=== PATIENT | male | born 1980 | race Caucasian/White ===

== ENCOUNTER 2019-12-14 15:48 | Inpatient (IN) | payer MEDICAID ==
[~2019-12-14] VITALS: Ht 175.3 cm; Wt 69.9 kg
[2019-12-14 16:09] VITALS: Ht 175.3 cm; Wt 69.9 kg
[2019-12-14 17:02] LABS: BASOPHIL % 0.5 % (0-2); PLATELET COUNT 248 x10^3mcL (130-400); RED CELL DISTRIBUTION WIDTH 13.5 % (11.5-14.5)
[2019-12-14 17:18] LABS: CALCIUM 9.3 mg/dL (8.5-10.1); CARBON DIOXIDE 28.9 mmol/L (21-32); CHLORIDE SERUM 103 mmol/L (98-107); CREATININE SERUM 0.7 mg/dL (0.7-1.3); GFR1 > 60 mL/min; GLUCOSE SERUM 103 mg/dL (74-106); POTASSIUM SERUM 3.6 mmol/L (3.5-5.1); SODIUM SERUM 141 mmol/L (136-145)
[2019-12-14 17:24] LABS: ALBUMIN 3.9 g/dL (3.4-5.0); ALKALINE PHOSPHATASE 204 U/L (46-116); ALT/SGPT 710 U/L (16-63); AST/SGOT 331 U/L (15-37); BILIRUBIN TOTAL 6.9 mg/dL (0.20-1.00); LIPASE 109 IU/L (73-393)
[2019-12-14 17:26] LABS: TOTAL PROTEIN, SERUM 7.3 g/dL (6.4-8.2)
[2019-12-14 18:52] LABS: microscopic required? NO
[2019-12-14 19:03] LABS: UA SPECIFIC GRAVITY 1.025 (1.005-1.035); urine erythrocyte NEGATIVE (NEGATIVE)
[2019-12-14 19:24] LABS: CHOLESTEROL/HDL RATIO 2.7; MAGNESIUM 2.4 mg/dL (1.8-2.4); PHOSPHOROUS 3.3 mg/dL (2.5-4.9)
[2019-12-14 19:35] LABS: AMPHETAMINE QUAL UR NONE DETECTED (See below)
[2019-12-14 20:21] LABS: T3 TOTAL 0.59 ng/mL
[2019-12-14 20:29] LABS: FREE T4 0.87 ng/dL (0.76-1.46)
[2019-12-14 20:30] LABS: FREE THYROXINE INDEX 1.5 ug/dL (1.4-4.5); T4(THYROXINE) 4.5 ug/dL (4.7-13.3)
[2019-12-14 20:48] VITALS: BP 120/79
[2019-12-15 05:46] VITALS: BP 100/56
[2019-12-15 06:44] LABS: MAGNESIUM 2.3 mg/dL (1.8-2.4); PHOSPHOROUS 3.2 mg/dL (2.5-4.9)
[2019-12-15 06:50] LABS: BASOPHIL % 0.8 % (0-2); PLATELET COUNT 205 x10^3mcL (130-400); RED CELL DISTRIBUTION WIDTH 13.6 % (11.5-14.5)
[2019-12-15 06:51] LABS: ALKALINE PHOSPHATASE 184 U/L (46-116); ALT/SGPT 581 U/L (16-63); AST/SGOT 236 U/L (15-37); BILIRUBIN TOTAL 6.25 mg/dL (0.20-1.00); CALCIUM 8.9 mg/dL (8.5-10.1); CARBON DIOXIDE 27.8 mmol/L (21-32); CHLORIDE SERUM 106 mmol/L (98-107); CREATININE SERUM 0.7 mg/dL (0.7-1.3); GFR1 > 60 mL/min; GLUCOSE SERUM 80 mg/dL (74-106); POTASSIUM SERUM 3.8 mmol/L (3.5-5.1); SODIUM SERUM 141 mmol/L (136-145)
[2019-12-15 07:05] LABS: ALBUMIN 3.2 g/dL (3.4-5.0); TOTAL PROTEIN, SERUM 6.1 g/dL (6.4-8.2)
[2019-12-15 08:15] VITALS: BP 103/59
[2019-12-15 13:00] VITALS: BP 99/61
[2019-12-15 16:19] VITALS: BP 93/57
[2019-12-15 20:33] VITALS: BP 99/55
[2019-12-15 21:08] VITALS: BP 105/71
[2019-12-16 05:40] VITALS: BP 100/52
[2019-12-16 06:30] LABS: BASOPHIL % 0.4 % (0-2); PLATELET COUNT 244 x10^3mcL (130-400); RED CELL DISTRIBUTION WIDTH 13.5 % (11.5-14.5)
[2019-12-16 06:59] LABS: ALKALINE PHOSPHATASE 201 U/L (46-116); ALT/SGPT 488 U/L (16-63); AST/SGOT 152 U/L (15-37); BILIRUBIN TOTAL 2.59 mg/dL (0.20-1.00); CHLORIDE SERUM 101 mmol/L (98-107); CREATININE SERUM 0.7 mg/dL (0.7-1.3); GFR1 > 60 mL/min; GLUCOSE SERUM 61 mg/dL (74-106); MAGNESIUM 1.9 mg/dL (1.8-2.4); PHOSPHOROUS 3.5 mg/dL (2.5-4.9); SODIUM SERUM 138 mmol/L (136-145); TOTAL PROTEIN, SERUM 6.4 g/dL (6.4-8.2)
[2019-12-16 07:17] LABS: ALBUMIN 3.2 g/dL (3.4-5.0)
[2019-12-16 09:03] VITALS: BP 112/54
[2019-12-16 13:13] VITALS: BP 109/63
[2019-12-16 13:48] VITALS: BP 107/56
[2019-12-16 17:03] VITALS: BP 129/69
[2019-12-16 20:00] VITALS: BP 105/53
[2019-12-17 05:01] VITALS: BP 100/56
[2019-12-17 06:28] LABS: BASOPHIL % 0.2 % (0-2); PLATELET COUNT 225 x10^3mcL (130-400); RED CELL DISTRIBUTION WIDTH 13.5 % (11.5-14.5)
[2019-12-17 07:51] LABS: CALCIUM 8.9 mg/dL (8.5-10.1); CARBON DIOXIDE 30.2 mmol/L (21-32); CHLORIDE SERUM 104 mmol/L (98-107); CREATININE SERUM 0.8 mg/dL (0.7-1.3); GFR1 > 60 mL/min; GLUCOSE SERUM 106 mg/dL (74-106); POTASSIUM SERUM 4.1 mmol/L (3.5-5.1); SODIUM SERUM 141 mmol/L (136-145)
[2019-12-17 08:06] LABS: BILIRUBIN DIRECT 1.14 mg/dL (0.0-0.2); BILIRUBIN TOTAL 1.74 mg/dL (0.20-1.00)
[2019-12-17] MEDS ORDERED: ACETAMINOPHEN-H1 TA1 PO (08:45)
[2019-12-17 09:42] VITALS: BP 100/56
[2019-12-17 09:53] VITALS: BP 100/55
== END 2019-12-17 12:41 | disposition home or self-care (01) | DRG 263 ==
LOC: ED 15:48 → MU 18:28 → DU 18:28 → MU 22:03 → DU 22:04
PROVIDERS: Emergency Medicine; Internal Medicine Gastroenterology; Surgery; ADMIT Student in an Organized Health Care Education/Training Program
PROC: BF131ZZ Fluoroscopy of Gallbladder and Bile Ducts using Low Osmolar Contrast (ICD-10-PCS; 2019-12-15)
PROC: 0FC98ZZ Extirpation of Matter from Common Bile Duct, Via Natural or Artificial Opening Endoscopic (ICD-10-PCS; 2019-12-15)
PROC: 0F798ZZ Dilation of Common Bile Duct, Via Natural or Artificial Opening Endoscopic (ICD-10-PCS; 2019-12-15 10:30)
PROC: 0F778ZZ Dilation of Common Hepatic Duct, Via Natural or Artificial Opening Endoscopic (ICD-10-PCS; 2019-12-15 10:30)
PROC: 0FT44ZZ Resection of Gallbladder, Percutaneous Endoscopic Approach (ICD-10-PCS; principal; 2019-12-16 09:00)
DX: K80.66 Calculus of gallbladder and bile duct with acute and chronic cholecystitis without obstruction (principal); K29.80 Duodenitis without bleeding; R74.0 Nonspecific elevation of levels of transaminase and lactic acid dehydrogenase [LDH]
CPT/HCPCS: 43262; 82962; 84439; C1769; G0378; J1170; J1610; J2250; J2270; J2405; J2543; J3010; J3480; J3490; J7030; J7120; Q0092; Q0163; Q9967